=== PATIENT | female | born 1935 | race African-American/Black ===

== ENCOUNTER 2017-06-30 00:20 | Inpatient (IN) | payer MEDICARE, MEDICAID ==
[~2017-06-30] VITALS: Ht 162.6 cm; Wt 97.7 kg
[~2017-06-30 00:20] MED LIST: ATEN-42 PO; ATOR40TA70 PO; FURO40TA5 PO; GLIM2TAB2 PO; ISOS1TAB PO; SITA1TAB8 PO
[2017-06-30] MEDS ORDERED: KETOROLAC 30MG/ML VIAL IV NR (01:23)
[2017-06-30] MEDS ORDERED: KETOROLAC 30MG/ML VIAL ONE (02:19)
[2017-06-30] MEDS ORDERED: METHOCARBAMOL 500MG TABLET PO NR (02:50)
[2017-06-30] MEDS ORDERED: SODIUM CHLORIDE 0.9% 1,000 ML IV ONE (02:50)
[2017-06-30 13:10] VITALS: BP 144/54
[2017-06-30 13:47] VITALS: BP 144/54
[2017-06-30 16:00] VITALS: BP 137/56
[2017-06-30] MEDS ORDERED: CLONIDINE 0.1MG TABLET PO PRN (16:15)
[2017-06-30] MEDS ORDERED: IPRATROPIUM/ALBUTEROL 0.5-3(2.5)MG/3ML NEB INH PRN (16:15)
[2017-06-30] MEDS ORDERED: LORAZEPAM 2MG/ML CPJ IV PRN (16:15)
[2017-06-30] MEDS ORDERED: ACETAMINOPHEN 325MG TABLET PO PRN (16:15)
[2017-06-30] MEDS ORDERED: NITROGLYCERIN 0.4MG TABLET SL SL PRN (16:15)
[2017-06-30] MEDS ORDERED: ZOLPIDEM TARTRATE 5MG TABLET PO PRN (16:15)
[2017-06-30] MEDS ORDERED: DEXTROSE 50% WATER 50ML SYRINGE IV PRN (16:15)
[2017-06-30] MEDS ORDERED: GUAIFENESIN 200MG/10ML SUGAR FREE UDC PO PRN (16:15)
[2017-06-30] MEDS ORDERED: DIPHENHYDRAMINE 50MG/ML VIAL IV PRN (16:15)
[2017-06-30] MEDS ORDERED: NA PHOS,M-B/NA PHOS,DI-BA ENEMA 118ML PR PRN (16:15)
[2017-06-30] MEDS ORDERED: MAGNESIUM/ALUMINUM HYDROXIDE/SIMETHICONE 30ML UDC PO PRN (16:15)
[2017-06-30] MEDS ORDERED: MORPHINE SULFATE 10 MG/ML CPJ IV PRN (16:15)
[2017-06-30 17:22] LABS: *AMPHETAMINES SCREEN URINE NEGATIVE (NEGATIVE); *BARBITURATES SCREEN URINE NEGATIVE (NEGATIVE); *BENZODIAZEPINES SCREEN URINE NEGATIVE (NEGATIVE); *COCAINE SCREEN URINE NEGATIVE (NEGATIVE); CANNABINOID URINE SCREEN NEGATIVE (NEGATIVE); METHADONE URINE SCREEN NEGATIVE (NEGATIVE); OPIATES URINE SCREEN NEGATIVE (NEGATIVE); PHENCYCLIDINE URINE SCREEN NEGATIVE (NEGATIVE)
[2017-06-30 17:26] LABS: CLARITY URINE CLEAR (CLEAR); COLOR URINE YELLOW (YELLOW); GLUCOSE URINE NEGATIVE (NEGATIVE); KETONES URINE NEGATIVE (NEGATIVE); LEUKOCYTE ESTERASE URINE NEGATIVE (NEGATIVE); NITRITE URINE NEGATIVE (NEGATIVE); OCCULT BLOOD URINE NEGATIVE (NEGATIVE); PROTEIN URINE NEGATIVE (NEGATIVE); SPECIFIC GRAVITY URINE 1.015 (1.005-1.030); UROBILINOGEN URINE 0.2 E.U./dL (0.2-1.0)
[2017-06-30] MEDS: BLOOD SUGAR DIAGNOSTIC STRIP TEST SCH ×2 (17:29→21:01)
[2017-06-30] MEDS: INSULIN LISPRO 100 UNITS/ML SUBCUT SCH ×2 (17:30→21:02)
[2017-06-30] MEDS: SUCRALFATE 1 G/10 ML UDC PO SCH ×2 (17:55→21:02)
[2017-06-30] MEDS: TRAMADOL 50MG TABLET PO PRN (18:01)
[2017-06-30 18:05] LABS: HEMATOCRIT 36.2 % (36.0-48.0); HEMOGLOBIN 11.6 g/dL (12.0-16.0); MEAN CORPUSCULAR VOLUME 81.3 fL (81.0-99.0); PLATELET 144 x1000/uL (130-400); RED BLOOD CELL COUNT 4.45 mill/uL (4.2-5.4); RED CELL DISTRIBUTION WIDTH 15.4 % (11.6-14.6)
[2017-06-30] MEDS ORDERED: LEVOFLOXACIN 500MG PREMIX 100 ML IV NR (18:30)
[2017-06-30 20:00] VITALS: BP 143/56
[2017-06-30] MEDS: ATORVASTATIN CALCIUM 40MG TABLET PO SCH (21:02)
[2017-06-30] MEDS: ENOXAPARIN 40MG/0.4ML SYR SUBCUT SCH (21:03)
[2017-06-30] MEDS: LISINOPRIL 10MG TABLET PO SCH (21:03)
[2017-06-30] MEDS ORDERED: GLIM2TAB2 PO (21:32)
[2017-06-30] MEDS ORDERED: ASPI-1159 PO (21:32)
[2017-06-30] MEDS ORDERED: SITA50TA3 PO (21:32)
[2017-06-30] MEDS ORDERED: CHOL100044 PO (21:32)
[2017-06-30] MEDS ORDERED: AMIT10TA6 PO (21:32)
[2017-06-30] MEDS ORDERED: TRAM50TA3 PO (21:32)
[2017-06-30] MEDS ORDERED: LATA2.5D2 EACHEYE (21:32)
[2017-06-30] MEDS ORDERED: CAPT50TA3 PO (21:32)
[2017-06-30] MEDS ORDERED: NAPR220C15 PO (21:32)
[2017-07-01] VITALS: BP 129/57
[2017-07-01 00:06] LABS: CREATINE KINASE 117 IU/L (26-192); TROPONIN I < 0.02 ng/mL (0.00-0.04)
[2017-07-01 00:07] LABS: CREATINE KINASE MB FRACTION 1.7 ng/mL (0.5-3.6)
[2017-07-01 04:00] VITALS: BP 117/56
[2017-07-01] MEDS: BLOOD SUGAR DIAGNOSTIC STRIP TEST SCH ×4 (06:28→20:56)
[2017-07-01 06:49] LABS: BASOPHILS % 0.5 % (0.0-2.0); EOSINOPHILS % 3.1 % (0.0-5.0); HEMATOCRIT. 31.6 % (36.0-48.0); HEMOGLOBIN. 10.2 g/dL (12.0-16.0); LYMPHOCYTES % 38.5 % (20.0-50.0); MEAN CORPUSCULAR HEMOGLOBIN 25.6 pg (28.0-32.0); MEAN CORPUSCULAR VOLUME 79.6 fL (81.0-99.0); MEAN PLATELET VOLUME 9.2 fl (7.4-10.4); MONOCYTES % 10.9 % (2.0-8.0); PLATELET 184 x1000/uL (130-400); RED BLOOD CELL COUNT 3.97 mill/uL (4.2-5.4); RED CELL DISTRIBUTION WIDTH 15.3 % (11.6-14.6)
[2017-07-01 07:05] LABS: CARBON DIOXIDE 23 mEq/L (21-32); CHLORIDE 107 mEq/L (98-107); CREATINE KINASE 137 IU/L (26-192); HDL CHOLESTEROL 26 mg/dL (40-59); LDL CHOLESTEROL 73 mg/dL (5-100)
[2017-07-01 07:06] LABS: CREATINE KINASE MB FRACTION 1.9 ng/mL (0.5-3.6); TROPONIN I < 0.02 ng/mL (0.00-0.04)
[2017-07-01] MEDS: INSULIN LISPRO 100 UNITS/ML SUBCUT SCH ×4 (07:52→21:05)
[2017-07-01 08:00] VITALS: BP 160/66
[2017-07-01] MEDS: SUCRALFATE 1 G/10 ML UDC PO SCH ×4 (08:52→20:54)
[2017-07-01] MEDS: ONDANSETRON HCL 4MG/2ML VIAL IV PRN (08:53)
[2017-07-01] MEDS: LISINOPRIL 10MG TABLET PO SCH ×2 (08:53→20:56)
[2017-07-01] MEDS: FUROSEMIDE 40MG TABLET PO SCH (08:53)
[2017-07-01] MEDS: TRAMADOL 50MG TABLET PO PRN (08:53)
[2017-07-01 12:07] VITALS: BP 113/44
[2017-07-01 16:00] VITALS: BP_SYST 120; BP_SYST 157; BP_DIAS 69; BP_DIAS 93
[2017-07-01] MEDS: LEVOFLOXACIN 250MG PREMIX 50 ML IV SCH (17:12)
[2017-07-01 20:00] VITALS: BP 154/60
[2017-07-01] MEDS: ATORVASTATIN CALCIUM 40MG TABLET PO SCH (20:54)
[2017-07-01] MEDS: ENOXAPARIN 40MG/0.4ML SYR SUBCUT SCH (21:00)
[2017-07-02] VITALS: BP 124/52
[2017-07-02 04:00] VITALS: BP 133/49
[2017-07-02] MEDS: BLOOD SUGAR DIAGNOSTIC STRIP TEST SCH ×4 (06:08→21:08)
[2017-07-02 08:00] VITALS: BP 135/76
[2017-07-02] MEDS: DOCUSATE SODIUM 100MG CAPSULE PO PRN ×2 (08:43→21:08)
[2017-07-02] MEDS: FUROSEMIDE 40MG TABLET PO SCH (08:43)
[2017-07-02] MEDS: SUCRALFATE 1 G/10 ML UDC PO SCH ×4 (08:44→21:08)
[2017-07-02] MEDS: LISINOPRIL 10MG TABLET PO SCH ×2 (08:44→21:06)
[2017-07-02] MEDS: INSULIN LISPRO 100 UNITS/ML SUBCUT SCH ×4 (08:45→21:14)
[2017-07-02] MEDS: ONDANSETRON HCL 4MG/2ML VIAL IV PRN (09:01)
[2017-07-02 12:00] VITALS: BP 103/42
[2017-07-02] MEDS: METOCLOPRAMIDE HCL 5MG TABLET PO SCH ×3 (13:25→21:07)
[2017-07-02] MEDS: ERYTHROMYCIN 250MG TABLET PO SCH ×2 (15:04→21:07)
[2017-07-02 16:00] VITALS: BP 116/50
[2017-07-02] MEDS: LEVOFLOXACIN 250MG PREMIX 50 ML IV SCH (17:46)
[2017-07-02 20:00] VITALS: BP 110/50
[2017-07-02] MEDS: ATORVASTATIN CALCIUM 40MG TABLET PO SCH (21:07)
[2017-07-02] MEDS: ENOXAPARIN 40MG/0.4ML SYR SUBCUT SCH (21:08)
[2017-07-03] VITALS: BP 116/55
[2017-07-03 04:00] VITALS: BP 144/56
[2017-07-03] MEDS: BLOOD SUGAR DIAGNOSTIC STRIP TEST SCH ×2 (05:56→13:21)
[2017-07-03] MEDS: ERYTHROMYCIN 250MG TABLET PO SCH (05:56)
[2017-07-03 08:00] VITALS: BP 136/47
[2017-07-03] MEDS: INSULIN LISPRO 100 UNITS/ML SUBCUT SCH ×2 (08:10→13:10)
[2017-07-03] MEDS: METOCLOPRAMIDE HCL 5MG TABLET PO SCH ×2 (09:10→12:40)
[2017-07-03] MEDS: FUROSEMIDE 40MG TABLET PO SCH (09:10)
[2017-07-03] MEDS: SUCRALFATE 1 G/10 ML UDC PO SCH ×2 (09:10→12:40)
[2017-07-03] MEDS: LISINOPRIL 10MG TABLET PO SCH (09:10)
[2017-07-03 11:44] VITALS: BP 137/71
[2017-07-03 12:00] VITALS: BP 143/76
== END 2017-07-03 13:44 | disposition home or self-care (01) | DRG 391 ==
LOC: ER 00:20 → ENRESERV 10:36 → 7WST 10:36
PROVIDERS: ADMIT Internal Medicine; ATTEND Internal Medicine
DX: K21.9 Gastro-esophageal reflux disease without esophagitis (principal); N17.0 Acute kidney failure with tubular necrosis; E11.65 Type 2 diabetes mellitus with hyperglycemia; E66.9 Obesity, unspecified; I10 Essential (primary) hypertension; R55 Syncope and collapse; E78.00 Pure hypercholesterolemia, unspecified; Z79.899 Other long term (current) drug therapy; Z68.37 Body mass index [BMI] 37.0-37.9, adult
CPT/HCPCS: 36415; 70450; 70544; 70553; 71010; 80048; 80061; 80305; 81003; 82550; 82553; 82962; 83036; 84484; 85025; 85027; 93970; 97162; 97166; 99285; J1650; J1815; J1885; J1956; J2270; J2405; J7030; J7050; J8597

== ENCOUNTER 2021-01-14 22:04 | Emergency (ER) | payer OTHER, MEDICAID ==
[~2021-01-14] VITALS: Ht 162.6 cm; Wt 82.0 kg
[~2021-01-14 22:04] MED LIST changes: +AMIT10TA6 PO; +ASPI-1497 PO; +CAPT50TA3 PO; +CHOL100044 PO; -GLIM2TAB2 PO; +GLIM2TAB30 PO; +INSU300I SQ; -ISOS1TAB PO; +LATA2.5D14 EACHEYE; +MELO-106 PO; +NAPR220C15 PO; +PANT40TA51 PO; -SITA1TAB8 PO; +SITA50TA3 PO; +TRAM50TA3 PO
[2021-01-14] MEDS ORDERED: ONDANSETRON 4MG ODT PO ONE (23:00)
[2021-01-14] MEDS ORDERED: IBUPROFEN 600MG TABLET PO ONE (23:00)
[2021-01-15] MEDS ORDERED: TOPUD MT (01:12)
[2021-01-15] MEDS ORDERED: ONDANSETRON 4MG ODT PO ONE (01:30)
[2021-01-15 02:25] VITALS: BP 157/82
== END 2021-01-15 02:53 | disposition home or self-care (01) ==
LOC: ER 22:04
DX: R51.9 Headache, unspecified (principal); R11.0 Nausea; I11.0 Hypertensive heart disease with heart failure; I50.9 Heart failure, unspecified; E11.9 Type 2 diabetes mellitus without complications; Z79.899 Other long term (current) drug therapy; Z79.82 Long term (current) use of aspirin
CPT/HCPCS: 70450; 93005; 99284; Q0162